=== PATIENT | male | born 1970 | race African-American/Black ===

== ENCOUNTER 2024-01-28 09:32 | Emergency (ER) | payer BC ==
[2024-01-28] MEDS: Dexamethasone 4 MG/ML SDV IM ONE (10:05)
[2024-01-28] MEDS: Ketorolac 30 MG/ML SDV IM ONE (10:06)
[2024-01-28] MEDS: Acetaminophen 500 MG Tab PO ONE (10:07)
[2024-01-28] MEDS: Lisinopril 10 MG Tab PO ONE (10:08)
[2024-01-28] MEDS: cloNIDine 0.1 MG Tab PO ONE (10:17)
== END 2024-01-28 11:38 | disposition home or self-care (01) ==
LOC: MW.ED 09:32
DX: M10.9 Gout, unspecified (principal); I10 Essential (primary) hypertension; M79.675 Pain in left toe(s); Z91.148 Patient's other noncompliance with medication regimen for other reason; Z86.16 Personal history of COVID-19; Z75.8 Other problems related to medical facilities and other health care; Z79.899 Other long term (current) drug therapy
CPT/HCPCS: 73620; 96372; 99283; A9270; J1100; J1885